=== PATIENT | male | born 1975 | race Caucasian/White ===

== ENCOUNTER 2018-11-20 10:45 | Inpatient (IN) | payer OTHER ==
[2018-11-18 17:31] VITALS: BMI 27.9
[2018-11-20] VITALS (23 sets, daily range): BP systolic 111–150; BP diastolic 54–78; PULSE 54–102; RESP 12–20; Ht 185.4 cm; Wt 94.5 kg
[~2018-11-20] VITALS: Ht 185.4 cm; Wt 94.5 kg
[2018-11-20] MEDS ORDERED: VENL75TA PO (12:05)
[2018-11-20] MEDS ORDERED: BUPR300T4 PO (12:06)
[2018-11-20] MEDS ORDERED: TOPI100T11 PO (12:06)
[2018-11-20] MEDS ORDERED: AMLO5TAB4 PO (12:07)
[2018-11-20] MEDS ORDERED: ATEN-51 PO (12:07)
[2018-11-20] MEDS ORDERED: MELO15TA30 PO (12:08)
[2018-11-20] MEDS ORDERED: GEMF600T8 PO (12:08)
[2018-11-20] MEDS ORDERED: FLUT16SP17 NASAL (12:08)
[2018-11-20] MEDS ORDERED: GELATIN SIZE 100 SPONGE ONE (12:38)
[2018-11-20] MEDS ORDERED: POLYMYXIN/BACITRACIN 1L IRRIG ONE (12:38)
[2018-11-20] MEDS ORDERED: THROMBIN 5000 UNIT VIAL ONE (12:38)
[2018-11-20] MEDS ORDERED: LIDOCAINE 1%/EPI (1:100,000) (MDV) 20 ML ONE (12:38)
--- NOTE | 2018-11-20 12:41 | HPN ---
Date/Time of Note Date/Time of Note DATE: 11/20/18 TIME: 12:41 Interval H&P Admission Note Pt. seen H&P reviewed: No system changes NADIR DEXTER MD Nov 20, 2018 12:41
--- NOTE | 2018-11-20 12:53 | PREAC ---
Date/Time of Note Date/Time of Note DATE: 11/20/18 TIME: 11:07 Anesthesia Eval and Record Evaluation Time Pre-Procedure Interview DATE: 11/20/18 TIME: 11:07 Age 43 Sex male NPO: 8 hrs Preoperative diagnosis cervical stenosis, cervicalgia, post laminectomy syndrome Planned procedure C3-C4, C4-C5 anterior cervical discectomy and fusion and C4 corpectomy Past Medical History Past Medical History: Includes Cardio: HTN, Dyslipidemia Psych: Anxiety Surgery & Anesthesia Issues No known issue Meds Anticoagulation: No Beta Oskar within 24 hr: Yes Reason Beta Oskar not given: Bradycarida, Hypotension Current Medications Lactated Ringer's 1,000 ml @ 25 mls/hr Q24H IV ; Start 11/20/18 at 07:00 Sodium Chloride 1,000 ml @ 25 mls/hr Q24H IV ; Start 11/20/18 at 07:00 Meds reviewed: Yes Allergies Coded Allergies: Penicillins (Verified Allergy, Unknown, TONGUE SWELLS, 11/18/18) adhesive tape (Verified Allergy, Unknown, RED,ITCHING, INFECTION, 11/18/18) Allergies Reviewed: Yes Labs/Studies Labs Reviewed: Reviewed by anesthesiologist test: N/A Pre-procedure Exam Airway: Adequate mouth opening, Adequate thyromental dist Mallampati: Mallampati II Teeth: Normal Lung: Normal Heart: Normal ASA Physical Status ASA physical status: 2 Emergency: None Planned Anesthetic General/MAC: ETT Planned Pain Management Parenteral pain med Pre-operative Attestations Prior to commencing anesthesia and surgery, the patient was re-evaluated, there was verification of: *The patient's identity *The results of appropriate recent lab work and preoperative vital signs *The above evaluation not changing prior to induction *Anesthetic plan, risk benefits, alternative and complications discussed with patient/family; questions answered; patient/family understands, accepts and wishes to proceed. SIMEON GREEN MD Nov 20, 2018 12:53
[2018-11-20] MEDS ORDERED: MIDAZOLAM 1 MG/ML 2 ML INJ ONE ×2 (13:09→14:03)
[2018-11-20] MEDS ORDERED: PHENYLephrine (100 MCG/ML) 10ML SYG ONE (13:24)
[2018-11-20] MEDS ORDERED: VANCOMYCIN 1 GM INJ ONE (13:43)
[2018-11-20] MEDS ORDERED: SUCCINYLCHOLINE CHLORIDE 100 MG/5 ML SYG IV ONE (14:23)
[2018-11-20] MEDS ORDERED: LIDOCAINE 2% (SDV) 5 ML INJ ONE (14:23)
[2018-11-20] MEDS ORDERED: PROPOFOL 40 ML ONE (14:23)
[2018-11-20] MEDS ORDERED: ROCURONIUM 50 MG INJ ONE ×2 (14:23→18:21)
[2018-11-20] MEDS ORDERED: EPHEDrine 25 MG/5 ML SYG ONE ×2 (14:34→19:52)
[2018-11-20] MEDS ORDERED: DEXAMETHASONE 4 MG/ML 5 ML INJ ONE (14:40)
[2018-11-20] MEDS ORDERED: ONDANSETRON 4 MG INJ ONE (14:40)
[2018-11-20] MEDS ORDERED: FAMOTIDINE 20 MG INJ ONE (14:40)
--- NOTE | 2018-11-20 15:54 | PREOPHP ---
DATE OF ADMISSION: 11/20/2018 DATE OF ENCOUNTER: 11/20/2018 HISTORY OF PRESENT ILLNESS: The patient is a 43-year-old male with a history of chronic shoulder iss ues and left upper shoulder pain. The patient has a history of a C5-C6 and C6-C7 anterior cervical d iskectomy and fusion by Dr. Delvin Santiago in 2008, followed by a C5-C6 posterior fusion due to a pseudoa rthrosis at C5-C6. The patient states that he initially had some improvement of his symptoms but sti ll had some persistent burning in his left forearm. However, over time, the patient has developed a significantly worsening neck pain that ranges from 7 to 10/10 in severity. He has been followed by p ain management and patient underwent injections as well as multiple other modalities of nonoperative therapy and did not have significant improvement from this. The patient also reports chronic headach es. Radiographic imaging revealed significant degenerative disk disease at C2-3 and foraminal narrow ing as well as degenerative disk disease at C4-5 with stenosis and spondylolisthesis on dynamic imagi ng. The patient denies any bowel or bladder issues or any signs or symptoms of myelopathy. PAST MEDICAL HISTORY: Significant for gastritis, esophageal herniation, left inguinal hernia, umbili naun hernia, cluster headache/migraine, and colon surgery for a tumor. ALLERGIES: PENICILLIN. PAST SURGICAL HISTORY: Significant for a lumbar fusion as well as an anterior and posterior cervical fusion in 2008 and 2011 as well as a sinus surgery and 3 hernia repairs. FAMILY HISTORY: The patient denies any history of any inherited medical issues or bleeding disorders . The patient's father of lung cancer, Mother is alive and has 2 siblings. SOCIAL HISTORY: The patient has an associate degree. 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 He does not smoke or use illicit drugs and occasionally drinks alcohol. MEDICATIONS: 1. Fexofenadine 180 mg. 2. Venlafaxine 75 mg. 3. ____ 50 mg. REVIEW OF SYSTEMS: A 12-point review of systems was performed. Pertinent positives and negatives li sted in history of present illness and below. CONSTITUTIONAL: Denies any fever, chills, or weight loss. HEMATOLOGIC: Denies any history of easy bruising or bleeding. PSYCHIATRIC: Denies any history of depression or anxiety. PHYSICAL EXAMINATION: VITAL SIGNS: The patient's temperature is 97.8, pulse 54, respirations 16, blood pressure 114/78, sa turating 100% on room air. GENERAL: The patient is a well-developed, well-nourished, middle-aged male in no acute distress. HEAD AND NECK: He is normocephalic. He has a positive Spurling sign and Lhermitte sign. He has dim inished range of motion but does not report discomfort with these motions. CARDIAC: Regular rate and rhythm. LUNGS: Clear to auscultation. ABDOMEN: Nontender, nondistended, soft. EXTREMITIES: No clubbing, cyanosis, or edema. NEUROLOGIC: Patient is awake, alert, and oriented x3. Fluent speech, follows commands well and appr opriately. Cranial nerves were intact. MUSCULOSKELETAL: His motor exam is 5/5 bilateral upper and lower extremities. He has 2+ deep tendon reflexes and grossly intact in sensation to light touch. He has no clonus, Babinski, or Lorri si gns. He has a negative Tinel sign. 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 I discussed patient's signs, symptoms, physical examination, and radiographic findings with him in detail. I discussed the risks, benefits, and alternatives of surgical intervention. I explained that he may or may not have improvement in h is neck pain and headaches from the surgery but does have evidence of instability. The surgical plan will be to remove the patient's plate from C5-5, C6-7 and performed a C4 corpectomy and anterior fus ion with plate. The patient understands that the plate may not be able to be removed and single-leve l anterior cervical diskectomy and fusions (ACDFs) may be performed and that the patient may have to return to surgery for a posterior operation. The patient has been seen by an carburetor repairer and castillo d no evidence of vocal cord dysfunction, previously had surgery on the right. The patient denies any hoarseness. The patient expressed understanding during this plan of care and is to be taken to the operating room (OR) today. Dictated By: NADIR DEXTER MD, LG/AMMON Conf#: [id number] DID#: [id number]
[2018-11-20] MEDS ORDERED: HYDROmorphONE 2 MG/ML SYG ONE (18:22)
[2018-11-20] MEDS ORDERED: ONDANSETRON 4 MG INJ IV PRN (19:30)
[2018-11-20] MEDS ORDERED: MEPERIDINE 25 MG INJ IV PRN (19:30)
[2018-11-20] MEDS ORDERED: FENTAnyl 50 MCG/ML VIAL IV PRN ×3 (19:30)
[2018-11-20] MEDS ORDERED: HYDROmorphONE 1 MG/5 ML IV SYRINGE IV PRN ×3 (19:30)
[2018-11-20] MEDS ORDERED: DIPHENHYDRAMINE 50 MG INJ IV PRN (19:30)
[2018-11-20] MEDS ORDERED: PROCHLORPERAZINE 10 MG INJ IV PRN (19:30)
[2018-11-20] MEDS ORDERED: DIPHENHYDRAMINE 50 MG CAP PO PRN (20:00)
[2018-11-20] MEDS ORDERED: NALOXONE (0.4 MG/ML) INJ IV PRN (20:00)
[2018-11-20] MEDS ORDERED: morphine 1 MG/ML 30 ML (PCA) IV SCH (20:00)
[2018-11-20] MEDS ORDERED: HYDROCODONE/APAP (5/325) TAB PO PRN (20:00)
[2018-11-20] MEDS ORDERED: NACL 0.9% 3 ML SYG IV SCH (20:00)
[2018-11-20] MEDS ORDERED: CEPASTAT LOZENGE MT PRN (20:00)
--- NOTE | 2018-11-20 20:12 | OPR ---
Date/Time of Note Date/Time of Note DATE: 11/20/18 TIME: 20:04 Operative Report Preoperative Diagnosis 1. cervical stenosis 2. cervical spondylosis 3. C4-5 instability 4. C3-4 degenerative disc disease. 5. cervical radiculopathy Postoperative Diagnosis 1. cervical stenosis 2. cervical spondylosis 3. C4-5 instability 4. C3-4 degenerative disc disease. 5. cervical radiculopathy Operation/Procedure Performed 1. C4 corpectomy 2. C3-4, C4-5 discectomy. 3. C3-5 arthrodesis. 4. removal of anterior cervical plate. 5. placement of anterior cervical plate C3-5. 6. placement of mechanical intervertebral device C3-5. 7. use of microscope for intraoperative microdissection. Surgeon see signature line Customer Greeter EDDIE Han Anesthesia Type: general Anesthesiologist: SIMEON GREEN MD Estimated Blood Loss: 50 - 100 ml's Transfusion none Specimen explanted cervical plate Grafts/Implants cervical plate, PEEK cage Tubes/Drains none Complications none Pt Condition Post Procedure: stable Disposition: PACU Procedure Description see dictation NADIR DEXTER MD Nov 20, 2018 20:12
--- NOTE | 2018-11-20 20:14 | PAC ---
Date/Time of Note Date/Time of Note DATE: 11/20/18 TIME: 20:13 Post-Anesthesia Notes Post-Anesthesia Note Last documented vital signs Vital Signs Date Temp Pulse Resp B/P (MAP) Pulse Ox O2 O2 Flow FiO2 Time Delivery Rate 11/20/18 99.6 20:06 11/20/18 54 16 114/78 100 Room Air 11:51 (90) Activity: WNL Respiratory function: WNL Cardiovascular function: WNL Mental status: Baseline Pain reasonably controlled: Yes Hydration appropriate: Yes Nausea/Vomiting absent: Yes Comments BP: 130/75 HR: 88 RR: 15 T: 99.6 SaO2: 99% SIMEON GREEN MD Nov 20, 2018 20:14
--- NOTE | 2018-11-20 20:58 | OPR ---
DATE OF OPERATION: 11/20/2018 PREOPERATIVE DIAGNOSES: 1. Cervical stenosis, C3 to C4, C4 to C5. 2. Cervical spondylosis, C3 to C4, C4 to C5. 3. C4 to C5 instability. 4. C3 to C4 degenerative disk disease. 5. Cervical radiculopathy. POSTOPERATIVE DIAGNOSES: 1. Cervical stenosis, C3 to C4, C4 to C5. 2. Cervical spondylosis, C3 to C4, C4 to C5. 3. C4 to C5 instability. 4. C3 to C4 degenerative disk disease. 5. Cervical radiculopathy. PROCEDURES: 1. C4 corpectomy. 2. C3 to C4, C4 to C5 diskectomy and bilateral foraminotomy. 3. C3 to C5 arthrodesis. 4. Removal of anterior cervical plate, C5 to C7. 5. Placement of anterior cervical plate, C3 to C5. 6. Placement of mechanical intervertebral bodies, C3 to C5. 7. Use of microscope for intraoperative microdissection. SURGEON: Nadir Dexter MD ANESTHESIOLOGIST: Bianka Maciel MD ANESTHESIA: General endotracheal. ESTIMATED BLOOD LOSS: 50 mL. SPECIMENS: Explanted graft/implant cervical plate and PEEK cage. DRAINS PLACED: None. COMPLICATIONS: None. DISPOSITION: PACU in stable condition. INDICATIONS: The patient is a 43-year-old male with a history of a prior C5 to C6 and C6 to C7 anterior cervical diskectomy and fusion in 2008 with a subsequent posterior C5 to C6 fusion for pseudoarthrosis in 2011 by another surgeon. The patient had some residual left arm radicular/dysesthetic symptoms, but his symptoms had improved overall. However over the years, the patient had progressive nerve pain and shoulder pain and pain radiating to the left shoulder as well as headaches. Imaging showed dynamic instability at C4 to C5 as well as degenerative disk disease at C2 to C3. The risks, benefits and alternatives of surgical intervention were discussed with the patient, who elected for surgery. DESCRIPTION OF PROCEDURE: The patient was brought to the OR. He was sedated, intubated and anesthesia was successfully induced. The patient was placed in the supine position in the operative table. An intrascapular shoulder roll was placed. The patient's neck was placed in gentle extension. All pressure points were checked for appropriate padding. Sequential compression devices were placed on lower extremities. Whatley catheter was placed. Perioperative Ancef antibiotics were given. Fluoroscopy was used to localize the initial incision. The patient was sterilely prepped and draped. After surgical time-out, the procedure commenced. A right-sided incision diagonally along the medial to the border of the sternocleidomastoid was made with a 10-blade knife. Blunt dissection with spreading of Metzenbaum scissors as well as digital manipulation was used to take an avascular plane through the fascia between the strap muscles and sternocleidomastoid. This was taken down the prevertebral fascia. The plate was then visualized. Bovie electrocautery was used to take capsule and soft tissue off of the plate. Then, a universal screw was used to remove this plate and screws. Bone wax was placed in the arnold holes. Attention was then turned to identifying the C3 to C4 and C4 to C5 levels. This was done with fluoroscopic guidance. Dissection of the soft tissue over the inferior aspect of C3, entirety of C4, anterior C4 and superior aspect of the C5 vertebral body was performed. The longus colli muscles were dissected and mobilized laterally and self-retaining retractors were placed. [place] pins were placed into the vertebral body of C5 and C3 and distraction was performed over the disk space. The microscope was brought in for the diskectomy and corpectomy. An 11-blade knife was used to incise the disk space at C5 and then the diskectomy was performed with Kerrison rongeurs and pituitary rongeurs. A diskectomy was also performed at C3. Next, the high speed drill was used to perform a corpectomy and removal of central bone from endplate to endplate. This bone was harvested to use for allograft for the interbody graft. Removal of bone was carried back to the posterior longitudinal ligament, which was then and removed over the dura. Kerrison rongeurs were then used to remove residual disk and ligament and foraminotomy was performed at C3 to C4 as well as C4 to C5. Hemostasis was achieved with Gelfoam and bipolar electrocautery. The wound was copiously irrigated. A 26 mm PEEK interbody cage was packed with autograft and this was tamponaded into the defect between C3 and C5. The cartilaginous endplates had been removed with a high speed drill and curettes prior to placement. The graft fit snugly. Distraction was removed to allow settling of the vertebral bodies on to the graft. This showed good placement fluoroscopically. Next 34 mm anterior cervical plate was placed over the vertebral body and 2 screws were placed in the C3 to C4 and 2 screws in the C4 vertebral body until all screws had excellent purchase. The locking mechanism was engaged for the screws. The wound was copiously irrigated with bacitracin irrigation. Final x-rays were performed showing good placement of the graft and screws. Hemostasis was achieved with bipolar electrocautery. Inspection of the esophagus and carotid showed no evidence of injury. The incision was then closed with 2-0 Vicryl suture in the platysma, 3-0 interrupted Vicryl sutures in the subcutaneous tissue and a running 4-0 Monocryl suture. Dermabond was placed on incision, allowed to dry and a sterile dressing was applied. The patient was awakened, extubated and taken off the operative table. The patient has been monitored with electrophysiologic monitoring throughout the case running with EMGs and SSEPs as well as motor-evoked potentials. These remained stable throughout the case. Sponge, needle and cottonoid count were reported correct at the end of the case. Dictated By: NADIR DEXTER MD, LG/AMMON Conf#: [id number] DID#: [id number] HENNA
[2018-11-20] MEDS: morphine 1 MG/ML 30 ML (PCA) IV SCH (21:18)
[2018-11-20] MEDS: ONDANSETRON 4 MG INJ IV PRN (22:26)
[2018-11-20] MEDS: VANCOMYCIN 1 GM (PMX) 250 ML IVPB SCH (22:26)
[2018-11-20] MEDS: LACTATED RINGER'S 1,000 ML IV SCH (22:51)
[2018-11-20] MEDS: SOD CHLORIDE 0.9% 1,000 ML IV SCH (22:51)
[2018-11-21] VITALS (28 sets, daily range): BP systolic 122–173; BP diastolic 60–99; PULSE 80–98; RESP 6–20
[2018-11-21] MEDS: LACTATED RINGER'S 1,000 ML IV SCH (06:19)
[2018-11-21] MEDS: SOD CHLORIDE 0.9% 1,000 ML IV SCH (06:22)
--- NOTE | 2018-11-21 06:54 | PN ---
Date/Time of Note Date/Time of Note DATE: 11/21/18 TIME: 06:49 Assessment/Plan Lines/Catheters IV Catheter Type (from Nrs): Peripheral IV Assessment/Plan Chief Complaint/Hosp Course PO # 1 s/p C4 corpectomy, C3-5 anterior fusion. Neurologically stable. Will give some Decadron given long incision and retraction to help swallowing. Ambulate. D/C Whatley. PT. SCD for DVT prophylaxis. To receive [place] collar today. Pain control, cont. FACILITY MANAGER though IV Tylenol to assist. Subjective 24 Hr Interval Summary Patient stable. Pain controlled. Denies significant neck pain, headache. Denies UE radicular pain. No real hoarseness though some difficulty with secretions and liquids. He denies fever or chills or weakness. Exam/Review of Systems Vital Signs Vitals Vital Signs Date Temp Pulse Resp B/P (MAP) Pulse Ox O2 O2 Flow FiO2 Time Delivery Rate 11/21/18 01:00 11/21/18 98.0 98 128/74 99 Nasal 2.0 00:00 (92) Cannula Intake and Output 11/20/18 11/20/18 11/21/18 1414:59 22:59 06:59 IntakeIntake Total 3000 ml 350 ml OutputOutput Total 450 ml BalanceBalance 3000 ml -450 ml 350 ml Exam Constitutional: alert, oriented, well developed Head: normocephalic Neck: other (neck in neutral position, in hard cervical collar. Incision C/D/I, not tense, no swelling) Neurological: CERTIFIED INDUSTRIAL HYGIENIST II-XII intact, nl mental status, nl speech, nl strength Results Result Diagram: 11/21/18 0505 11/21/18 0505 NADIR DEXTER MD Nov 21, 2018 06:54
[2018-11-21] MEDS: ONDANSETRON 4 MG INJ IV PRN ×2 (06:58→16:10)
[2018-11-21] MEDS ORDERED: EPHEDrine 25 MG/5 ML SYG ONE (07:00)
[2018-11-21] MEDS: DEXTROSE 5%-0.45% NACL 1,000 ML IV SCH ×2 (08:49→22:46)
[2018-11-21] MEDS: ACETAMINOPHEN 1000MG/100ML IV 100 ML IVPB SCH ×3 (08:49→21:45)
[2018-11-21] MEDS: AMLODIPINE 5 MG TAB PO SCH (09:00)
[2018-11-21] MEDS: GEMFIBROZIL 600 MG TAB PO SCH (09:00)
[2018-11-21] MEDS: ATENOLOL 25 MG TAB PO SCH (09:00)
[2018-11-21] MEDS: FLUTICASONE 0.05% 16 GM NAS SPRAY NASAL SCH (09:00)
[2018-11-21] MEDS: VENLAFAXINE 75 MG TABLET PO SCH ×2 (09:00→21:45)
[2018-11-21] MEDS: BUPROPION (XL) 150 MG TAB PO SCH (09:00)
[2018-11-21] MEDS: DOCUSATE SODIUM 100 MG CAP PO SCH ×2 (09:00→21:45)
[2018-11-21] MEDS: DEXAMETHASONE 4 MG/ML 1 ML INJ IV SCH ×3 (09:03→22:45)
[2018-11-21] MEDS ORDERED: METOCLOPRAMIDE 10 MG INJ IV PRN ×2 (09:45→18:00)
[2018-11-21] MEDS: VANCOMYCIN 1 GM (PMX) 250 ML IVPB SCH (11:01)
[2018-11-21] MEDS ORDERED: METOCLOPRAMIDE 10 MG INJ IV SCH (12:00)
--- NOTE | 2018-11-21 12:23 | HP ---
TONY TROY 11/21/18 1223: Date/Time of Note Date/Time of Note DATE: 11/21/18 TIME: 12:16 Assessment/Plan VTE Prophylaxis Risk score (from [facility] [place])>0 risk: 8 SCD applied (from [facility] [place]): Yes SCD contraindicated: other Pharmacological prophylaxis: NA/contraindicated Pharm contraindication: surgical contra Lines/Catheters IV Catheter Type (from [facility] [place]): Peripheral IV Assessment/Plan Hospital Course 1. 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 S/p C4 corpectomy, C3-4, C4-5 discectomy, C3-5 arthrodesis, removal of anterior cervical plate, placement of anterior cervical plate C3-5, placement of mechanical intervertebral device C3-[address] Montgomery on 11/20/18. POD # 1. WBC elevated more likely after surgical intervention 2. Chronic cluster headaches, possible to chronic neck pain. Hx of chronic shoulder pain 3. Normocytic normochromic anemia 4. Hx of anterior and posterior cervical fusion in 2008 and 2011, 5.Hypertension 6. Hx of colon tumor removal 7. Hx of herniorrhaphy 3 times. 8. Overweight 9. Hx of hyperlipidemia 10. hx of depression 11. Hx of sinus surgery, Assessment/Plan -dvt proph. ambulation -CRYSTAL CUTTER morphine drip -GI proph. start Protonix -BP control -IV a/b Result Diagram: 11/21/18 0505 11/21/18 0505 Results 24hrs Laboratory Tests Test 11/21/18 05:05 11/21/18 07:44 White Blood Count 16.7 H Red Blood Count 4.09 L Hemoglobin 12.2 L Hematocrit 36.9 L Mean Corpuscular Volume 90.2 Mean Corpuscular Hemoglobin 29.8 Mean Corpuscular Hemoglobin Concent 33.1 Red Cell Distribution Width 12.6 Platelet Count 256 Mean Platelet Volume 10.2 Immature Granulocytes % 0.400 Neutrophils % 88.1 H Lymphocytes % 5.1 L Monocytes % 6.2 Eosinophils % 0.0 Basophils % 0.2 Nucleated Red Blood Cells % 0.0 Immature Granulocytes # 0.070 H Neutrophils # 14.8 H Lymphocytes # 0.9 Monocytes # 1.0 H Eosinophils # 0.0 Basophils # 0.0 Nucleated Red Blood Cells # 0.0 Sodium Level 141 Potassium Level 4.7 Chloride Level 108 Carbon Dioxide Level 25 Anion Gap 8 Blood Urea Nitrogen 15 Creatinine 1.12 Est Glomerular Filtrat Rate mL/min > 60 Glucose Level 178 Calcium Level 9.3 Lab Scanned Report REFERENCE LAB HPI/ROS Admit Date/Time Admit Date/Time Nov 20, 2018 at 10:45 Hx of Present Illness The patient is a 43-year-old male with a history of chronic neck pain, chronic headaches, depression, chronic shoulder issues and left upper shoulder pain. The patient has injured in 2005 and had a C5-C6 and C6-C7 anterior cervical diskectomy and fusion 2008, followed by a C5-C6 posterior fusion due to a pseud oarthrosis at C5-C6. Over time, the patient has developed a significantly worsening neck pain that ranges from 7 to 10/10 in severity. He had difficulties working. He has been followed by pain management and patient underwent injections as well as multiple other modalities of nonoperative therapy and did not have significant improvement from this. Pt is seen after surgery, on POSt op day 1 on Morphin drip for pain. Pt is NPO. PAST MEDICAL HISTORY: Significant for gastritis, esophageal herniation, left inguinal hernia, umbilical hernia, cluster headache/migraine, and colon surgery for a tumor. ROS Constitutional: febrile; No no complaints, No improved, No chills, No diaphoresis, No disoriented, No fatigue, No nausea, No poor po, No weight change, No other ENT: pain Musculoskeletal: no complaints, back pain, bone/joint pain, neck pain, restricted range of motion, swelling, other PMH/Family/Social Past Medical History Medical History: no pertinent history Medications Current Medications Lactated Ringer's 1,000 ml @ 25 mls/hr Q24H IV ; Start 11/20/18 at 07:00 Sodium Chloride 1,000 ml @ 25 mls/hr Q24H IV Last administered on 11/20/18at 22:51; Admin Dose 25 MLS/HR; Start 11/20/18 at 07:00 Acetaminophen/ Hydrocodone Bitart ([place]win (5/325)) 1 tab Q4H PRN PO .PAIN 1-5; Start 11/20/18 at 20:00 Acetaminophen/ Hydrocodone Bitart (Baldwin (5/325)) 2 tab Q4H PRN PO .PAIN 6-10; Start 11/20/18 at 20:00 Ondansetron HCl (Zofran Inj) 4 mg Q6H PRN IV NAUSEA/VOMITING Last administered on 11/21/18at 06:58; Admin Dose 4 MG; Start 11/20/18 at 20:00 Docusate Sodium (Colace) 100 mg BID PO ; Start 11/21/18 at 09:00 Acetaminophen (Tylenol Tab) 650 mg Q4H PRN PO TEMP GREATER THAN 101F OR REYES; Start 11/20/18 at 20:00 Diazepam (Valium) 5 mg Q4H PRN PO .MUSCLE SPASM; Start 11/20/18 at 20:00 Phenol (Cepastat Lozenge) 1 lozenge PRN PRN MT .SORE THROAT; Start 11/20/18 at 20:00 Diphenhydramine HCl (Benadryl) 50 mg Q6H PRN PO .PRURITUS; Start 11/20/18 at 20:00 IV Flush (NS 3 ml) 3 ml PER PROTOCOL IV ; Start 11/20/18 at 20:00 Naloxone HCl (Narcan) 0.2 mg Q2M PRN IV RR 8 BREATHS/MIN OR LESS; Start 11/20/18 at 20:00 Morphine Sulfate (morphine) Q4PCA IV Last administered on 11/20/18at 21:18; Admin Dose 30 MG; Start 11/20/18 at 21:30 Amlodipine Besylate (Norvasc) 5 mg DAILY PO ; Start 11/21/18 at 09:00 Atenolol (Tenormin) 25 mg DAILY PO ; Start 11/21/18 at 09:00 Bupropion HCl (Wellbutrin Xl) 300 mg DAILY PO ; Start 11/21/18 at 09:00 Fluticasone Propionate (Flonase 0.05% Nasal) 1 spray DAILY NASAL ; Start 11/21/18 at 09:00 Gemfibrozil (Lopid) 600 mg DAILY PO ; Start 11/21/18 at 09:00 Topiramate (Topamax) 100 mg QHS PO ; Start 11/21/18 at 21:00 Venlafaxine HCl (Effexor) 75 mg BID PO ; Start 11/21/18 at 09:00 Dexamethasone (Decadron) 4 mg Q8 IV Last administered on 11/21/18at 09:03; Admin Dose 4 MG; Start 11/21/18 at 08:00 Acetaminophen 100 ml @ 400 mls/hr Q6H IVPB Last administered on 11/21/18at 08:49; Admin Dose 400 MLS/HR; Start 11/21/18 at 09:00; Stop 11/22/18 at 03:14 Dextrose/Sodium Chloride 1,000 ml @ 40 mls/hr Q24H IV Last administered on 11/21/18at 08:49; Admin Dose 40 MLS/HR; Start 11/21/18 at 08:00 Metoclopramide HCl (Reglan) 10 mg Q6H PRN IV NAUSEA Last administered on 11/21/18at 09:43; Admin Dose 10 MG; Start 11/21/18 at 09:45 Coded Allergies: Penicillins (Verified Allergy, Unknown, TONGUE SWELLS, 11/20/18) adhesive tape (Verified Allergy, Unknown, RED,ITCHING, INFECTION, 11/20/18) Past Surgical History Past Surgical Hx: other ( anterior and posterior cervical fusion in 2008 and 2011, sinus surgery, colon tumor removal and 3 hernia repairs.) Social History Alcohol Use: none Smoking Status: Never smoker Drug Use: none Exam/Review of Systems Vital Signs Vitals Vital Signs Date Temp Pulse Resp B/P (MAP) Pulse Ox O2 O2 Flow FiO2 Time Delivery Rate 11/21/18 Nasal 2.0 08:00 Cannula 11/21/18 16 08:00 11/21/18 97.9 86 138/85 100 07:49 (102) Intake and Output 11/20/18 11/20/18 11/21/18 1515:00 23:00 07:00 IntakeIntake Total 3000 ml 350 ml OutputOutput Total 450 ml BalanceBalance 3000 ml -450 ml 350 ml Exam Exam in [place] collar Constitutional: alert, oriented Psych: no complaints Head: normocephalic Eyes: nl conjunctiva Neck: other (surg. scars) Respiratory: clear to auscultation Cardiovascular: regular rate and rhythm Gastrointestinal: soft Skin: other (mumerous tattoo) DALLAS KISER MD 11/21/18 0958: Assessment/Plan Assessment/Plan Assessment/Plan DIFFICULTY SWALLOWING SPEECH AND SWALLOW DR GRAVELY CALLED Result Diagram: 11/21/18 0505 11/21/18 0505 PMH/Family/Social Past Medical History Coded Allergies: Penicillins (Verified Allergy, Unknown, TONGUE SWELLS, 11/20/18) adhesive tape (Verified Allergy, Unknown, RED,ITCHING, INFECTION, 11/20/18) TONY TROY Nov 21, 2018 12:23 DALLAS KISER MD Nov 21, 2018 15:47
--- NOTE | 2018-11-21 16:28 | PN ---
Date/Time of Note Date/Time of Note DATE: 11/21/18 TIME: 15:50 Assessment/Plan Lines/Catheters IV Catheter Type (from Nrs): Peripheral IV Subjective 24 Hr Interval Summary Patient having swallowing issues and difficulty even keeping down water. He denies SOB or difficulty breathing.I reviewed his plain film cervical x-ray. there is significant pre-vertebral swelling. Most likely blood. Unclear of significance of some subcutaneous emphysema. This could suggest a hyopharyngeal injury but unclear. I will get a CT scan but given his swelling and swallowing issues, it may be most prudent to explore the wound and evacuate any blood that is present as well as leave a drain. . I explained that his may simply be swelling rather than significant hematoma. The patient stated that he understood and agreed with decompression if I felt this would be best. I discussed the risk, benefits and alternatives of surgery versus observation with him. I he agreed with surgery although I will make the final decision after the CT scan of the neck has been completed. Exam/Review of Systems Vital Signs Vitals Vital Signs Date Temp Pulse Resp B/P (MAP) Pulse Ox O2 O2 Flow FiO2 Time Delivery Rate 11/21/18 98.6 97 18 133/84 98 14:46 (100) 11/21/18 Nasal 2.0 08:00 Cannula Intake and Output 11/20/18 11/20/18 11/21/18 1515:00 23:00 07:00 IntakeIntake Total 3000 ml 350 ml OutputOutput Total 450 ml BalanceBalance 3000 ml -450 ml 350 ml Results Result Diagram: 11/21/18 0505 11/21/18 0505 NADIR DEXTER MD Nov 21, 2018 16:28
[2018-11-21] MEDS ORDERED: POLYMYXIN/BACITRACIN 1L IRRIG ONE (17:30)
--- NOTE | 2018-11-21 17:46 | PREAC ---
Date/Time of Note Date/Time of Note DATE: 11/21/18 TIME: 17:43 Anesthesia Eval and Record Evaluation Time Pre-Procedure Interview DATE: 11/21/18 TIME: 17:43 Age 43 Sex male NPO: 8 hrs Preoperative diagnosis s/p Cervical Laminectomy and fusion and Hematoma Planned procedure Evacuation of Cervical Hematoma, I & D of cervical Hematoma Past Medical History Past Medical History: Includes Cardio: HTN, Dyslipidemia Neuro: Other (Stenosis and Radiculopathy) Heme: Anemia Surgery & Anesthesia Issues No known issue Meds Anticoagulation: No Beta Oskar within 24 hr: Yes Reported Medications Fluticasone Propionate* (Fluticasone Propionate* Nasal) 50 Mcg/Convent - 16 Gm Convent.susp, 1 SPRAY NASAL DAILY, #1 BOTTLE TO EACH NOSTRIL 11/20/18 Gemfibrozil* (Gemfibrozil*) 600 Mg Tablet, 600 MG PO DAILY, TAB 11/20/18 Meloxicam* (Mobic*) 15 Mg Tablet, 15 MG PO DAILY, #30 TAB 11/20/18 Amlodipine Besylate* (Norvasc*) 5 Mg Tablet, 5 MG PO DAILY, TAB 11/20/18 Atenolol* (Atenolol*) 25 Mg Tablet, 25 MG PO DAILY, #30 TAB 11/20/18 Topiramate* (Topiramate*) 100 Mg Tablet, 100 MG PO QHS, TAB 11/20/18 Bupropion Hcl* (Bupropion XL*) 300 Mg Tab.sr.24h, 300 MG PO DAILY, TAB.SA 11/20/18 Venlafaxine Hcl* (Venlafaxine Hcl*) 75 Mg Tablet, 75 MG PO BID, TAB 11/20/18 Current Medications Acetaminophen/ Hydrocodone Bitart ([place] (5/325)) 1 tab Q4H PRN PO .PAIN 1-5; Start 11/20/18 at 20:00 Acetaminophen/ Hydrocodone Bitart ([place] (5/325)) 2 tab Q4H PRN PO .PAIN 6-10; Start 11/20/18 at 20:00 Ondansetron HCl (Zofran Inj) 4 mg Q6H PRN IV NAUSEA/VOMITING Last administered on 11/21/18at 16:10; Admin Dose 4 MG; Start 11/20/18 at 20:00 Docusate Sodium (Colace) 100 mg BID PO ; Start 11/21/18 at 09:00 Acetaminophen (Tylenol Tab) 650 mg Q4H PRN PO TEMP GREATER THAN 101F OR REYES; Start 11/20/18 at 20:00 Diazepam (Valium) 5 mg Q4H PRN PO .MUSCLE SPASM; Start 11/20/18 at 20:00 Phenol (Cepastat Lozenge) 1 lozenge PRN PRN MT .SORE THROAT; Start 11/20/18 at 20:00 Diphenhydramine HCl (Benadryl) 50 mg Q6H PRN PO .PRURITUS; Start 11/20/18 at 20:00 IV Flush (NS 3 ml) 3 ml PER PROTOCOL IV ; Start 11/20/18 at 20:00 Naloxone HCl (Narcan) 0.2 mg Q2M PRN IV RR 8 BREATHS/MIN OR LESS; Start 11/20/18 at 20:00 Morphine Sulfate (morphine) Q4PCA IV Last administered on 11/20/18at 21:18; Admin Dose 30 MG; Start 11/20/18 at 21:30 Amlodipine Besylate (Norvasc) 5 mg DAILY PO ; Start 11/21/18 at 09:00 Atenolol (Tenormin) 25 mg DAILY PO ; Start 11/21/18 at 09:00 Bupropion HCl (Wellbutrin Xl) 300 mg DAILY PO ; Start 11/21/18 at 09:00 Fluticasone Propionate (Flonase 0.05% Nasal) 1 spray DAILY NASAL ; Start 11/21/18 at 09:00 Gemfibrozil (Lopid) 600 mg DAILY PO ; Start 11/21/18 at 09:00 Topiramate (Topamax) 100 mg QHS PO ; Start 11/21/18 at 21:00 Venlafaxine HCl (Effexor) 75 mg BID PO ; Start 11/21/18 at 09:00 Dexamethasone (Decadron) 4 mg Q8 IV Last administered on 11/21/18at 15:01; Admin Dose 4 MG; Start 11/21/18 at 08:00 Acetaminophen 100 ml @ 400 mls/hr Q6H IVPB Last administered on 11/21/18at 15:01; Admin Dose 400 MLS/HR; Start 11/21/18 at 09:00; Stop 11/22/18 at 03:14 Dextrose/Sodium Chloride 1,000 ml @ 40 mls/hr Q24H IV Last administered on 11/21/18at 08:49; Admin Dose 40 MLS/HR; Start 11/21/18 at 08:00 Metoclopramide HCl (Reglan) 10 mg Q6H PRN IV NAUSEA Last administered on 11/21/18at 09:43; Admin Dose 10 MG; Start 11/21/18 at 09:45 Pantoprazole (Protonix Iv) 40 mg DAILY@06 IV ; Start 11/22/18 at 06:00 Meds reviewed: Yes Allergies Coded Allergies: Penicillins (Verified Allergy, Unknown, TONGUE SWELLS, 11/20/18) adhesive tape (Verified Allergy, Unknown, RED,ITCHING, INFECTION, 11/20/18) Allergies Reviewed: Yes Labs/Studies Labs Reviewed: Reviewed by anesthesiologist Result Diagram: 11/21/18 0505 11/21/18 0505 Laboratory Tests 11/21/18 05:05 test: N/A Studies: ECG (n/a), CXR (n/a) Pre-procedure Exam Last vitals Vital Signs Date Temp Pulse Resp B/P (MAP) Pulse Ox O2 O2 Flow FiO2 Time Delivery Rate 11/21/18 16 17:30 11/21/18 98.6 97 133/84 98 14:46 (100) 11/21/18 Nasal 2.0 08:00 Cannula Airway: Adequate mouth opening, Adequate thyromental dist Mallampati: Mallampati III Teeth: Normal Lung: Normal Heart: Normal ASA Physical Status ASA physical status: 2 Emergency: E Planned Anesthetic General/MAC: ETT Planned Pain Management Parenteral pain med Pre-operative Attestations Prior to commencing anesthesia and surgery, the patient was re-evaluated, there was verification of: *The patient's identity *The results of appropriate recent lab work and preoperative vital signs *The above evaluation not changing prior to induction *Anesthetic plan, risk benefits, alternative and complications discussed with patient/family; questions answered; patient/family understands, accepts and wishes to proceed. TOSHIA TOLBERT MD Nov 21, 2018 17:46
[2018-11-21] MEDS ORDERED: PROPOFOL 20 ML ONE (17:52)
[2018-11-21] MEDS ORDERED: ROCURONIUM 50 MG INJ ONE ×2 (17:52→17:53)
[2018-11-21] MEDS ORDERED: SUCCINYLCHOLINE CHLORIDE 100 MG/5 ML SYG IV ONE (17:52)
[2018-11-21] MEDS ORDERED: FENTAnyl 50 MCG/ML VIAL ONE (17:53)
[2018-11-21] MEDS ORDERED: MIDAZOLAM 1 MG/ML 2 ML INJ ONE (17:53)
[2018-11-21] MEDS ORDERED: METOCLOPRAMIDE 10 MG INJ ONE (17:54)
[2018-11-21] MEDS ORDERED: ONDANSETRON 4 MG INJ ONE (17:54)
[2018-11-21] MEDS ORDERED: DEXAMETHASONE 4 MG/ML 5 ML INJ ONE (17:55)
--- NOTE | 2018-11-21 17:58 | HPN ---
Date/Time of Note Date/Time of Note DATE: 11/21/18 TIME: 17:57 Interval H&P Admission Note Pt. seen H&P reviewed: Systems changes noted below see progress note from today. deferred Ct, patient doing direct to OR for drainage. NADIR DEXTER MD Nov 21, 2018 17:58
[2018-11-21] MEDS ORDERED: EPHEDrine SULFATE 50 MG/5 ML SYG IV PRN (18:00)
[2018-11-21] MEDS ORDERED: MEPERIDINE 25 MG INJ IV PRN (18:00)
[2018-11-21] MEDS ORDERED: FENTAnyl 50 MCG/ML VIAL IV PRN ×6 (18:00→20:30)
[2018-11-21] MEDS ORDERED: HYDROmorphONE 1 MG/5 ML IV SYRINGE IV PRN ×3 (18:00)
[2018-11-21] MEDS ORDERED: hydrALAzine 20 MG INJ IV PRN (18:00)
[2018-11-21] MEDS ORDERED: DIPHENHYDRAMINE 50 MG INJ IV PRN (18:00)
[2018-11-21] MEDS ORDERED: ONDANSETRON 4 MG INJ IV PRN (18:00)
[2018-11-21] MEDS ORDERED: PHENYLephrine (100 MCG/ML) 10ML SYG ONE (18:27)
[2018-11-21] MEDS ORDERED: VANCOMYCIN 1 GM (PMX) 250 ML ONE (18:35)
[2018-11-21] MEDS ORDERED: SUGAMMADEX SODIUM 200 MG/2 ML VIAL IV ONE (19:38)
[2018-11-21] MEDS: LABETALOL HCL 20MG INJ IV PRN ×4 (19:57→20:57)
--- NOTE | 2018-11-21 19:58 | PAC ---
Date/Time of Note Date/Time of Note DATE: 11/21/18 TIME: 19:58 Post-Anesthesia Notes Post-Anesthesia Note Last documented vital signs Vital Signs Date Temp Pulse Resp B/P (MAP) Pulse Ox O2 O2 Flow FiO2 Time Delivery Rate 11/21/18 16 17:30 11/21/18 98.6 97 16 133/84 98 face mask 8 L 20:00 (100) 11/21/18 Nasal 2.0 08:00 Cannula Activity: WNL Respiratory function: WNL Cardiovascular function: WNL Mental status: Baseline Pain reasonably controlled: Yes Hydration appropriate: Yes Nausea/Vomiting absent: Yes TOSHIA TOLBERT MD Nov 21, 2018 19:58
[2018-11-21] MEDS: morphine 1 MG/ML 30 ML (PCA) IV SCH ×2 (20:11→23:25)
--- NOTE | 2018-11-21 20:15 | OPR ---
Date/Time of Note Date/Time of Note DATE: 11/21/18 TIME: 19:51 Operative Report Preoperative Diagnosis 1. anterior cervical hematoma. Postoperative Diagnosis 1. anterior cervical hematoma. Operation/Procedure Performed 1. anterior cervical wound exploration and evacuation of hematoma. 2. Use of intraoperative microscope. Surgeon see signature line Harnessmaker Apprentice none Anesthesia Type: general Anesthesiologist: TOSHIA TOLBERT MD Estimated Blood Loss: 10 - 50 ml's Transfusion none Specimen none Grafts/Implants none Tubes/Drains prevertebral drain Complications none Pt Condition Post Procedure: stable Disposition: PACU Indications 43 year-old male status post C5-7 anterior cervical plate removal and C4 corpectomy, C3-5 fusion yesterday. The patient reported progressive difficult swallowing. Although he did not have any dyspnea, plain film x-rays of the neck showed significant pre-vertebral expansion, in excess of simple swelling. Given the potential progression to airway compromise, it was felt that the incision should be explored. The risk, benefits and alternative of the procedure were discussed with the patient who elected for surgery. Procedure Description The patient was brought to the OR. He was placed in a supine position of the operative table. He was intubated by the anesthesiologist. Pressure points were appropriately padded. Pre-operative antibiotics were given. The patient was sterilely prepped and draped. After a surgical time out, the procedure commenced . The incision was opened sharply with Metzenbaum scissors after the Dermabond was removed. Immediately visible beneath the subcutaneous tissue was congealed blood clot. The clot was removed with suction and a [place] #1. The clot was firm and almost solid and was difficult to suction. Irrigation was used to soften up the clot. The clot extended and field the entirety of the large operative cavity. When all the clot had been remove, the pre-vertebral space, esophagus and carotid were inspected and there did not appear to be evidence of injury. There did not appear to any arterial or edmond venous bleeder seen nor any active bleeding until the of the case when there was some minimal expected bleeding from the muscles where clot had been removed. These small areas were coagulated with bipolar electrocautery. The incision was then reinspected under magnification with the microscope. Once hemostasis was achieved, the wound was washed out with multiple rounds of irrigation. A 10 flat WILBERT drain was placed in the prevertebral space and tunneled through the skin and secured with a 2-0 nylon suture. The incision was closed with 3-0 interrupted Vicryl in the platysma, 2-0 Vicryl in the subcuticular layer and Dermabond for the skin. The drain was placed to suction. The patient was extubated, taken off the table and taken to recovery. Sponge, needle and cottonoid count were reported correct at the end of the case. GRAVELY,NADIR Parra MD Nov 21, 2018 20:07
[2018-11-21] MEDS: TOPIRAMATE 100 MG TAB PO SCH (21:45)
[2018-11-21] MEDS: LEVOFLOXACIN 750MG/D5W (PMX) 150 ML IVPB SCH (22:45)
[2018-11-22] MEDS: ACETAMINOPHEN 1000MG/100ML IV 100 ML IVPB SCH (00:36)
[2018-11-22 01:00] VITALS: BP 128/60; PULSE 80; RESP 17
[2018-11-22] MEDS: DEXAMETHASONE 4 MG/ML 1 ML INJ IV SCH ×3 (06:33→22:26)
[2018-11-22] MEDS: PANTOPRAZOLE 40 MG INJ IV SCH (06:33)
[2018-11-22 08:02] VITALS: BP 151/82; PULSE 92; RESP 18
--- NOTE | 2018-11-22 08:22 | PN ---
Date/Time of Note Date/Time of Note DATE: 11/22/18 TIME: 08:14 Assessment/Plan Lines/Catheters IV Catheter Type (from Nrs): Peripheral IV Assessment/Plan Chief Complaint/Hosp Course POD #2, 1s/p C4 corpectomy and fusion with return to OR for evacuation of prevertebral hematoma. Doing better. Expected normal bleeding from drain, only 30 ml overnight but will leave in until tomorrow. Cont. Decadron for 1 more day then ween off. Levaquin for prophylaxis- SQ emphysema was seen, d/w ENT, unlikely hypopharyngeal issue but will leave drain to assess for drainage. SCD for DVT prophylaxis. Will get swallow evaluation. Ambulate. Pt. expressed understanding and agreement with this plan of care. Subjective 24 Hr Interval Summary Patient is doing better. Reports less neck fullness and easier time speaking and handling secretions. Still reports some phlegm in throat. He denies any new numbness, tingling ,weakness. His neck pain is well controlled Exam/Review of Systems Vital Signs Vitals Vital Signs Date Temp Pulse Resp B/P (MAP) Pulse Ox O2 O2 Flow FiO2 Time Delivery Rate 11/22/18 17 05:00 11/22/18 98.2 80 128/60 97 Nasal 2.0 01:00 (82) Cannula Intake and Output 11/21/18 11/21/18 11/22/18 1414:59 22:59 06:59 IntakeIntake Total 700 ml 600 ml 510 ml OutputOutput Total 1100 ml 1175 ml 1630 ml BalanceBalance -400 ml -575 ml -1120 ml Exam Constitutional: alert, oriented Neck: other (anterior incision soft, C/D/I, no swelling. Neck in neutral position in hard cervical collar. Drain in place.) Neurological: SENIOR BIOINFORMATICS SPECIALIST II-XII intact, nl mental status, nl speech, nl strength Results Result Diagram: 11/22/18 0439 11/22/18 0438 NADIR DEXTER MD Nov 22, 2018 08:22
[2018-11-22] MEDS: GEMFIBROZIL 600 MG TAB PO SCH (09:00)
[2018-11-22] MEDS: DOCUSATE SODIUM 100 MG CAP PO SCH ×2 (09:00→20:47)
[2018-11-22] MEDS: FLUTICASONE 0.05% 16 GM NAS SPRAY NASAL SCH (10:16)
[2018-11-22] MEDS: VENLAFAXINE 75 MG TABLET PO SCH ×2 (10:17→20:47)
[2018-11-22] MEDS: ATENOLOL 25 MG TAB PO SCH (10:17)
[2018-11-22] MEDS: BUPROPION (XL) 150 MG TAB PO SCH (10:17)
[2018-11-22] MEDS: AMLODIPINE 5 MG TAB PO SCH (10:17)
[2018-11-22] MEDS: TOPIRAMATE 100 MG TAB PO SCH (10:27)
--- NOTE | 2018-11-22 16:11 | PN ---
TONY TROY 11/22/18 1611: Date/Time of Note Date/Time of Note DATE: 11/22/18 TIME: 16:11 Assessment/Plan VTE Prophylaxis Risk score (from Ns)>0 risk: 4 SCD applied (from Ns): Yes Pharmacological prophylaxis: NA/contraindicated Pharm contraindication: surgical contra Lines/Catheters IV Catheter Type (from Nrs): Peripheral IV Assessment/Plan Hospital Course 1. 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 S/p C4 corpectomy, C3-4, C4-5 discectomy, C3-5 arthrodesis, removal of anterior cervical plate, placement of anterior cervical plate C3-5, placement of mechanical intervertebral device C3-[address] Montgomery on 11/20/18. POD # 1. WBC elevated more likely after surgical intervention 2. Chronic cluster headaches, possible to chronic neck pain. Hx of chronic shoulder pain 3. Normocytic normochromic anemia, secondary to blood loss 4. Hx of anterior and posterior cervical fusion in 2008 and 2011, 5.Hypertension 6. Hx of colon tumor removal 7. Hx of herniorrhaphy 3 times. 8. Overweight 9. Hx of hyperlipidemia 10. hx of depression 11. Hx of sinus surgery, 12. Constipation Assessment/Plan -dvt proph. 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 Protonix -BP control -IV a/b -Patient patient started on full liquid -Iron panel was normal -Bowel regimen Result Diagram: 11/22/18 0439 11/22/18 0438 Results 24hrs Laboratory Tests Test 11/22/18 04:38 11/22/18 04:39 Sodium Level 145 H Potassium Level 3.9 Chloride Level 109 Carbon Dioxide Level 26 Anion Gap 10 Blood Urea Nitrogen 14 Creatinine 1.19 Est Glomerular Filtrat Rate mL/min > 60 Glucose Level 144 Calcium Level 9.7 Iron Level 78 Total Iron Binding Capacity 346 Percent Iron Saturation 23 White Blood Count 15.3 H Red Blood Count 3.64 L Hemoglobin 10.8 L Hematocrit 33.0 L Mean Corpuscular Volume 90.7 Mean Corpuscular Hemoglobin 29.7 Mean Corpuscular Hemoglobin Concent 32.7 Red Cell Distribution Width 12.7 Platelet Count 270 Mean Platelet Volume 9.9 Immature Granulocytes % 0.500 H Neutrophils % 81.8 H Lymphocytes % 9.6 L Monocytes % 8.0 Eosinophils % 0.0 Basophils % 0.1 Nucleated Red Blood Cells % 0.0 Immature Granulocytes # 0.070 H Neutrophils # 12.6 H Lymphocytes # 1.5 Monocytes # 1.2 H Eosinophils # 0.0 Basophils # 0.0 Nucleated Red Blood Cells # 0.0 Subjective 24 Hr Interval Summary ENT: pain Exam/Review of Systems Exam Vitals Vital Signs Date Temp Pulse Resp B/P (MAP) Pulse Ox O2 O2 Flow FiO2 Time Delivery Rate 11/22/18 98.9 92 18 151/82 98 Nasal 08:02 (105) Cannula 11/22/18 2.0 01:00 Intake and Output 11/21/18 11/21/18 11/22/18 1515:00 23:00 07:00 IntakeIntake Total 700 ml 600 ml 510 ml OutputOutput Total 1100 ml 1575 ml 1230 ml BalanceBalance -400 ml -975 ml -720 ml Exam ASpen collar Eyes: nl conjunctiva Neck: supple, other (surgical dressingd) Respiratory: clear to auscultation Cardiovascular: regular rate and rhythm Gastrointestinal: soft Results Result Diagram: 11/22/18 0439 11/22/18 0438 Results 24hrs Laboratory Tests Test 11/22/18 04:38 11/22/18 04:39 Sodium Level 145 H Potassium Level 3.9 Chloride Level 109 Carbon Dioxide Level 26 Anion Gap 10 Blood Urea Nitrogen 14 Creatinine 1.19 Est Glomerular Filtrat Rate mL/min > 60 Glucose Level 144 Calcium Level 9.7 Iron Level 78 Total Iron Binding Capacity 346 Percent Iron Saturation 23 White Blood Count 15.3 H Red Blood Count 3.64 L Hemoglobin 10.8 L Hematocrit 33.0 L Mean Corpuscular Volume 90.7 Mean Corpuscular Hemoglobin 29.7 Mean Corpuscular Hemoglobin Concent 32.7 Red Cell Distribution Width 12.7 Platelet Count 270 Mean Platelet Volume 9.9 Immature Granulocytes % 0.500 H Neutrophils % 81.8 H Lymphocytes % 9.6 L Monocytes % 8.0 Eosinophils % 0.0 Basophils % 0.1 Nucleated Red Blood Cells % 0.0 Immature Granulocytes # 0.070 H Neutrophils # 12.6 H Lymphocytes # 1.5 Monocytes # 1.2 H Eosinophils # 0.0 Basophils # 0.0 Nucleated Red Blood Cells # 0.0 Medications Medication Current Medications Acetaminophen/ Hydrocodone Bitart ([place] (/325)) 1 tab Q4H PRN PO .PAIN 1-5; Start 11/20/18 at 20:00 Acetaminophen/ Hydrocodone Bitart ([place] (5/325)) 2 tab Q4H PRN PO .PAIN 6-10; Start 11/20/18 at 20:00 Ondansetron HCl (Zofran Inj) 4 mg Q6H PRN IV NAUSEA/VOMITING Last administered on 11/21/18 16:10; Admin Dose 4 MG; Start 11/20/18 at 20:00 Docusate Sodium (Colace) 100 mg BID PO ; Start 11/21/18 at 09:00 Acetaminophen (Tylenol Tab) 650 mg Q4H PRN PO TEMP GREATER THAN 101F OR REYES; Start 11/20/18 at 20:00 Diazepam (Valium) 5 mg Q4H PRN PO .MUSCLE SPASM; Start 11/20/18 at 20:00 Phenol (Cepastat Lozenge) 1 lozenge PRN PRN MT .SORE THROAT; Start 11/20/18 at 20:00 Diphenhydramine HCl (Benadryl) 50 mg Q6H PRN PO .PRURITUS; Start 11/20/18 at 20:00 Naloxone HCl (Narcan) 0.2 mg Q2M PRN IV RR 8 BREATHS/MIN OR LESS; Start 11/20/18 at 20:00 Morphine Sulfate (morphine) Q4PCA IV Last administered on 11/21/18 23:25; Admin Dose 30 MG; Start 11/20/18 at 21:30 Amlodipine Besylate (Norvasc) 5 mg DAILY PO Last administered on 11/22/18 10:17; Admin Dose 5 MG; Start 11/21/18 at 09:00 Atenolol (Tenormin) 25 mg DAILY PO Last administered on 11/22/18 10:17; Admin Dose 25 MG; Start 11/21/18 at 09:00 Bupropion HCl (Wellbutrin Xl) 300 mg DAILY PO Last administered on 11/22/18 10:17; Admin Dose 300 MG; Start 11/21/18 at 09:00 Fluticasone Propionate (Flonase 0.05% Nasal) 1 spray DAILY NASAL Last administered on 11/22/18 10:16; Admin Dose 1 SPRAY; Start 11/21/18 at 09:00 Gemfibrozil (Lopid) 600 mg DAILY PO ; Start 11/21/18 at 09:00 Topiramate (Topamax) 100 mg QHS PO Last administered on 11/22/18at 10:27; Admin Dose 100 MG; Start 11/21/18 at 21:00 Venlafaxine HCl (Effexor) 75 mg BID PO Last administered on 11/22/18 10:17; Ad min Dose 75 MG; Start 11/21/18 at 09:00 Dexamethasone (Decadron) 4 mg Q8 IV Last administered on 11/22/18 14:30; Admin Dose 4 MG; Start 11/21/18 at 08:00 Dextrose/Sodium Chloride 1,000 ml @ 40 mls/hr Q24H IV Last administered on 11/21/18at 22:46; Admin Dose 40 MLS/HR; Start 11/21/18 at 08:00 Metoclopramide HCl (Reglan) 10 mg Q6H PRN IV NAUSEA Last administered on 11/21/18 09:43; Admin Dose 10 MG; Start 11/21/18 at 09:45 Pantoprazole (Protonix Iv) 40 mg DAILY@06 IV Last administered on 11/22/18 06:33; Admin Dose 40 MG; Start 11/22/18 at 06:00 Levofloxacin/ Dextrose 150 ml @ 100 mls/hr Q24H IVPB Last administered on 11/21/18 22:45; Admin Dose 100 MLS/HR; Start 11/21/18 at 22:00 Zolpidem Tartrate (Ambien) 10 mg HS PRN PO INSOMNIA; Start 11/22/18 at 21:00 DALLAS KISER MD 11/22/18 1743: Assessment/Plan Assessment/Plan Assessment/Plan s/p emergent evacuation yesterday pcp pump fu dr montgomery Result Diagram: 11/22/18 0439 11/22/18 0438 TONY TROY Nov 22, 2018 16:11 DALLAS KISER MD Nov 22, 2018 17:43
[2018-11-22 20:18] VITALS: BP 132/73; PULSE 84; RESP 18
[2018-11-22] MEDS: ACETAMINOPHEN 325 MG TAB PO PRN (20:47)
[2018-11-22] MEDS: morphine 1 MG/ML 30 ML (PCA) IV SCH (20:47)
[2018-11-22] MEDS: DIAZEPAM 5 MG TAB PO PRN (22:26)
[2018-11-22] MEDS: LEVOFLOXACIN 750MG/D5W (PMX) 150 ML IVPB SCH (22:26)
[2018-11-22] MEDS: ZOLPIDEM 5 MG TAB PO PRN (22:37)
[2018-11-23 02:50] VITALS: BP 126/75; PULSE 84; RESP 18
[2018-11-23] MEDS: DIAZEPAM 5 MG TAB PO PRN ×3 (05:39→21:10)
[2018-11-23] MEDS: DEXAMETHASONE 4 MG/ML 1 ML INJ IV SCH (05:39)
[2018-11-23] MEDS: PANTOPRAZOLE 40 MG INJ IV SCH (05:39)
[2018-11-23 07:00] VITALS: BP 140/93; PULSE 92; RESP 18
--- NOTE | 2018-11-23 09:44 | PN ---
Date/Time of Note Date/Time of Note DATE: 11/23/18 TIME: 09:39 Assessment/Plan Lines/Catheters IV C[facility]ter Type (from [facility]): Peripheral IV Assessment/Plan Chief Complaint/Hosp Course POD #3, 1s/p C4 corpectomy and fusion with return to OR for evacuation of prevertebral hematoma. Neurologically stable. 10 ml from rain overnight, simply blood, so drain removed Weening off Decadron. Will cont. Levaquin prophylaxis until D/C. SCD for DVT prophylaxis. F/u swallow evaluation for advancement of diet recommendations. Ambulate. Hopefully, home tomorrow if he continues to do well. Pt. expressed understanding and agreement with this plan of care. Subjective 24 Hr Interval Summary Patient doing well. He feels that his swallowing is improving and minimal odynophagia. He has no neurological complaints. He denies fevers. Exam/Review of Systems Vital Signs Vitals Vital Signs Date Temp Pulse Resp B/P (MAP) Pulse Ox O2 O2 Flow FiO2 Time Delivery Rate 11/23/18 18 05:00 11/23/18 98.2 84 126/75 94 02:50 (92) 11/22/18 Nasal 2.0 20:00 Cannula Intake and Output 11/22/18 11/22/18 11/23/18 1515:00 23:00 07:00 IntakeIntake Total 1080 ml 1240 ml 150 ml OutputOutput Total 1100 ml 1230 ml 1210 ml BalanceBalance -20 ml 10 ml -1060 ml Exam Constitutional: alert, oriented, well developed Neck: other (trachea midline, incision C/D/I, soft. Drain removed. No crepitus) Neurological: GERIATRIC PSYCHIATRIST II-XII intact, nl mental status, nl speech, nl strength Results Result Diagram: 11/23/1851111/23/1812 NADIR DEXTER MD Nov 23, 2018 09:44
[2018-11-23] MEDS: DOCUSATE SODIUM 100 MG CAP PO SCH ×2 (09:46→21:10)
[2018-11-23] MEDS: ATENOLOL 25 MG TAB PO SCH (09:48)
[2018-11-23] MEDS: AMLODIPINE 5 MG TAB PO SCH (09:48)
[2018-11-23] MEDS: VENLAFAXINE 75 MG TABLET PO SCH ×2 (09:49→21:10)
[2018-11-23] MEDS: GEMFIBROZIL 600 MG TAB PO SCH (09:53)
[2018-11-23] MEDS: FLUTICASONE 0.05% 16 GM NAS SPRAY NASAL SCH (10:00)
[2018-11-23] MEDS ORDERED: LUBIPROSTONE 8 MCG CAPSULE PO SCH (10:00)
--- NOTE | 2018-11-23 10:00 | PN ---
Date/Time of Note Date/Time of Note DATE: 11/23/18 TIME: 09:56 Assessment/Plan VTE Prophylaxis Risk score (from Ns)>0 risk: 5 SCD applied (from Ns): Yes Pharmacological prophylaxis: NA/contraindicated Pharm contraindication: surgical contra Lines/Catheters IV [facility]from [facility] Peripheral IV Assessment/Plan Hospital Course 1. 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 S/p C4 corpectomy, C3-4, C4-5 discectomy, C3-5 arthr odesis, removal of anterior cervical plate, placement of anterior cervical plate C3-5, placement of mechanical intervertebral device C3-[address] Montgomery on 11/20/18. POD # 1. WBC elevated more likely after surgical intervention 2. Chronic cluster headaches, possible to chronic neck pain. Hx of chronic shoulder pain 3. Normocytic normochromic anemia, secondary to blood loss 4. Hx of anterior and posterior cervical fusion in 2008 and 2011, 5.Hypertension 6. Hx of colon tumor removal 7. Hx of herniorrhaphy 3 times. 8. Overweight 9. Hx of hyperlipidemia 10. hx of depression 11. Hx of sinus surgery, 12. Constipation Assessment/Plan -dvt proph. 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 Protonix -BP control -IV a/b levofl. - tenzin well full liquid -Iron panel was normal -Bowel regimen Result Diagram: 11/23/18 0512 11/23/18 0512 Results 24hrs Laboratory Tests Test 11/23/18 05:12 White Blood Count 12.8 H Red Blood Count 3.68 L Hemoglobin 11.0 L Hematocrit 33.3 L Mean Corpuscular Volume 90.5 Mean Corpuscular Hemoglobin 29.9 Mean Corpuscular Hemoglobin Concent 33.0 Red Cell Distribution Width 12.7 Platelet Count 267 Mean Platelet Volume 10.2 Immature Granulocytes % 0.200 Neutrophils % 81.2 H Lymphocytes % 12.5 L Monocytes % 5.9 Eosinophils % 0.0 Basophils % 0.2 Nucleated Red Blood Cells % 0.0 Immature Granulocytes # 0.030 Neutrophils # 10.4 H Lymphocytes # 1.6 Monocytes # 0.8 Eosinophils # 0.0 Basophils # 0.0 Nucleated Red Blood Cells # 0.0 Sodium Level 144 Potassium Level 4.2 Chloride Level 109 Carbon Dioxide Level 27 Anion Gap 8 Blood Urea Nitrogen 13 Creatinine 1.01 Est Glomerular Filtrat Rate mL/min > 60 Glucose Level 120 Calcium Level 10.0 Subjective 24 Hr Interval Summary Gastrointestinal: constipation (5 d); No no complaints, No pain, No blood, No decreased appetite, No diarrhea, No flatus, No nausea, No vomiting, No other Exam/Review of Systems Exam Vitals Vital Signs Date Temp Pulse Resp B/P (MAP) Pulse Ox O2 O2 Flow FiO2 Time Delivery Rate 11/23/18 98.3 92 18 140/93 90 Room Air 07:00 (109) 11/22/18 2.0 20:00 Intake and Output 11/22/18 11/22/18 11/23/18 1515:00 23:00 07:00 IntakeIntake Total 1080 ml 1240 ml 150 ml OutputOutput Total 1100 ml 1230 ml 1210 ml BalanceBalance -20 ml 10 ml -1060 ml Exam aspen collar Constitutional: alert, oriented Head: normocephalic Eyes: nl conjunctiva Neck: supple, other (surg dress, WILBERT) Cardiovascular: regular rate and rhythm Gastrointestinal: soft Results Results 24hrs Laboratory Tests Test 11/23/18 05:12 White Blood Count 12.8 H Red Blood Count 3.68 L Hemoglobin 11.0 L Hematocrit 33.3 L Mean Corpuscular Volume 90.5 Mean Corpuscular Hemoglobin 29.9 Mean Corpuscular Hemoglobin Concent 33.0 Red Cell Distribution Width 12.7 Platelet Count 267 Mean Platelet Volume 10.2 Immature Granulocytes % 0.200 Neutrophils % 81.2 H Lymphocytes % 12.5 L Monocytes % 5.9 Eosinophils % 0.0 Basophils % 0.2 Nucleated Red Blood Cells % 0.0 Immature Granulocytes # 0.030 Neutrophils # 10.4 H Lymphocytes # 1.6 Monocytes # 0.8 Eosinophils # 0.0 Basophils # 0.0 Nucleated Red Blood Cells # 0.0 Sodium Level 144 Potassium Level 4.2 Chloride Level 109 Carbon Dioxide Level 27 Anion Gap 8 Blood Urea Nitrogen 13 Creatinine 1.01 Est Glomerular Filtrat Rate mL/min > 60 Glucose Level 120 Calcium Level 10.0 Medications Medication Current Medications Acetaminophen/ Hydrocodone Bitart ([place] (5/325)) 1 tab Q4H PRN PO .PAIN 1-5; Start 11/20/18 at 20:00 Acetaminophen/ Hydrocodone Bitart ([place] (5/325)) 2 tab Q4H PRN PO .PAIN 6-10; Start 11/20/18 at 20:00 Ondansetron HCl (Zofran Inj) 4 mg Q6H PRN IV NAUSEA/VOMITING Last administered on 11/21/18 16:10; Admin Dose 4 MG; Start 11/20/18 at 20:00 Docusate Sodium (Colace) 100 mg BID PO Last administered on 11/23/18 09:46; Admin Dose 100 MG; Start 11/21/18 at 09:00 Acetaminophen (Tylenol Tab) 650 mg Q4H PRN PO TEMP GREATER THAN 101F OR REYES Last administered on 11/22/18 20:47; Admin Dose 650 MG; Start 11/20/18 at 20:00 Diazepam (Valium) 5 mg Q4H PRN PO .MUSCLE SPASM Last administered on 11/23/18 05:39; Admin Dose 5 MG; Start 11/20/18 at 20:00 Phenol (Cepastat Lozenge) 1 lozenge PRN PRN MT .SORE THROAT; Start 11/20/18 at 20:00 Diphenhydramine HCl (Benadryl) 50 mg Q6H PRN PO .PRURITUS; Start 11/20/18 at 20:00 Naloxone HCl (Narcan) 0.2 mg Q2M PRN IV RR 8 BREATHS/MIN OR LESS; Start 11/20/18 at 20:00 Morphine Sulfate (morphine) Q4PCA IV Last administered on 11/22/18 20:47; Admin Dose 30 MG; Start 11/20/18 at 21:30 Amlodipine Besylate (Norvasc) 5 mg DAILY PO Last administered on 11/23/18 09:48; Admin Dose 5 MG; Start 11/21/18 at 09:00 Atenolol (Tenormin) 25 mg DAILY PO Last administered on 11/23/18 09:48; Admin Dose 25 MG; Start 11/21/18 at 09:00 Bupropion HCl (Wellbutrin Xl) 300 mg DAILY PO Last administered on 11/22/18 10:17; Admin Dose 300 MG; Start 11/21/18 at 09:00 Fluticasone Propionate (Flonase 0.05% Nasal) 1 spray DAILY NASAL Last administered on 11/22/18 10:16; Admin Dose 1 SPRAY; Start 11/21/18 at 09:00 Gemfibrozil (Lopid) 600 mg DAILY PO Last administered on 11/23/18 09:53; Admin Dose 600 MG; Start 11/21/18 at 09:00 Topiramate (Topamax) 100 mg QHS PO Last administered on 11/22/18 10:27; Admin Dose 100 MG; Start 11/21/18 at 21:00 Venlafaxine HCl (Effexor) 75 mg BID PO Last administered on 11/23/18 09:49; Admin Dose 75 MG; Start 11/21/18 at 09:00 Metoclopramide HCl (Reglan) 10 mg Q6H PRN IV NAUSEA Last administered on 11/21/18 09:43; Admin Dose 10 MG; Start 11/21/18 at 09:45 Pantoprazole (Protonix Iv) 40 mg DAILY@06 IV Last administered on 11/23/18 05:39; Admin Dose 40 MG; Start 11/22/18 at 06:00 Levofloxacin/ Dextrose 150 ml @ 100 mls/hr Q24H IVPB Last administered on 22:26; Admin Dose 100 MLS/HR; Start 11/21/18 at 22:00 Zolpidem Tartrate (Ambien) 10 mg HS PRN PO INSOMNIA Last administered on 11/22/18 22:37; Admin Dose 10 MG; Start 11/22/18 at 21:00 Dexamethasone (Decadron) 1 mg BID PO ; Start 11/23/18 at 21:00; Stop 11/24/18 at 09:00 TONY TROY Nov 23, 2018 10:00
[2018-11-23] MEDS: HYDROCODONE/APAP (5/325) TAB PO PRN ×4 (10:31→22:42)
[2018-11-23] MEDS: ACETAMINOPHEN 325 MG TAB PO PRN ×2 (12:07→17:12)
[2018-11-23] MEDS: BUPROPION (XL) 150 MG TAB PO SCH (12:07)
[2018-11-23 14:22] VITALS: BP 124/75; PULSE 69; RESP 18
[2018-11-23 20:33] VITALS: BP 131/69; PULSE 72; RESP 19
[2018-11-23] MEDS: TOPIRAMATE 100 MG TAB PO SCH (21:10)
[2018-11-23] MEDS: DEXAMETHASONE 1 MG TAB PO SCH (21:10)
[2018-11-23] MEDS: LEVOFLOXACIN 750MG/D5W (PMX) 150 ML IVPB SCH (21:11)
[2018-11-24] MEDS: DIAZEPAM 5 MG TAB PO PRN (01:12)
[2018-11-24] MEDS: ZOLPIDEM 5 MG TAB PO PRN (01:12)
[2018-11-24] MEDS: HYDROCODONE/APAP (5/325) TAB PO PRN ×2 (02:47→06:47)
[2018-11-24 04:50] VITALS: BP 137/84; PULSE 67; RESP 18
[2018-11-24] MEDS ORDERED: PANTOPRAZOLE (EC) 40 MG TAB PO SCH (06:00)
[2018-11-24 07:58] VITALS: BP 136/80; PULSE 68; RESP 17
--- NOTE | 2018-11-24 08:17 | PN ---
Date/Time of Note Date/Time of Note DATE: 11/24/18 TIME: 08:15 Assessment/Plan Lines/Catheters IV Catheter Type (from Nrsg): Saline Lock [place] in Place (from Nrsg): No Assessment/Plan Chief Complaint/Hosp Course POD #4, 2s/p C4 corpectomy and fusion with return to OR for evacuation of prevertebral hematoma. Neurologically stable. F/u swallow evaluation for advancement of diet recommendations. Ambulate. Home today, f/u in 2 weeks. Subjective 24 Hr Interval Summary Patient doing well. Neck pain well controlled with oral meds. Ambulating, eating with diet advanced, less odynophagia. Denies radicular pain, numbness or weakness. Denies fever or chills. Exam/Review of Systems Vital Signs Vitals Vital Signs Date Temp Pulse Resp B/P (MAP) Pulse Ox O2 O2 Flow FiO2 Time Delivery Rate 11/24/18 98.3 68 17 136/80 93 07:58 (98) 11/23/18 Room Air 14:22 11/22/18 2.0 20:00 Intake and Output 11/23/18 11/23/18 11/24/18 1515:00 23:00 07:00 IntakeIntake Total 1550 ml 200 ml OutputOutput Total 1275 ml 800 ml BalanceBalance -1275 ml 750 ml 200 ml Exam Constitutional: alert, oriented, well developed Psych: no complaints Neck: other (incision C/D/I/. In neutrla position in hard cervical collar. Incision soft. ) Neurological: MANAGER PRESENTATION II-XII intact, nl mental status, nl speech, nl strength Results Result Diagram: 11/24/18 0513 11/24/18 0513 NADIR DEXTER MD Nov 24, 2018 08:17
[2018-11-24] MEDS: GEMFIBROZIL 600 MG TAB PO SCH (08:46)
[2018-11-24] MEDS: DOCUSATE SODIUM 100 MG CAP PO SCH (08:46)
[2018-11-24] MEDS: BUPROPION (XL) 150 MG TAB PO SCH (08:47)
[2018-11-24] MEDS: ATENOLOL 25 MG TAB PO SCH (08:48)
[2018-11-24] MEDS: DEXAMETHASONE 1 MG TAB PO SCH (08:49)
[2018-11-24] MEDS: VENLAFAXINE 75 MG TABLET PO SCH (08:49)
[2018-11-24] MEDS: AMLODIPINE 5 MG TAB PO SCH (08:49)
[2018-11-24] MEDS: FLUTICASONE 0.05% 16 GM NAS SPRAY NASAL SCH (10:01)
--- NOTE | 2018-11-25 00:22 | DS ---
DATE OF ADMISSION: 11/20/2018 DATE OF DISCHARGE: 11/24/2018 HISTORY OF PRESENT ILLNESS AND HOSPITAL COURSE: This is a 43-year-old male with the past medical his tory of chronic neck pain, chronic headache, depression, shoulder pain issues. The patient had injur ed in 2005 and had C5, C6, C7 anterior cervical diskectomy followed by C5-C6 posterior fusion due to pseudoarthrosis. The patient had developed significant worsening neck pain and was followed by pain management as an outpatient. The patient was admitted electively by Dr. Dexter for severe cervical stenosis and cervical spondylosis. The patient had a C4 corpectomy, C3-C4 diskectomy, C3-C5 arthrod esis. Postop, the patient was started on a PEDIATRIC CNS drip due to pain issues. However, postop, the patien t started complaining of swallowing difficulty. Cervical x-ray was ordered that shows patient had ma rked prevertebral 5 cm soft tissue swelling with patent airway. The patient was taken to the OR agai n by Dr. Dexter and had evacuation of the prevertebral hematoma. The patient was feeling better aft er that. The patient was also started on IV Decadron. The patient's condition was getting better ev bob day. After that, neck pain was well controlled with oral meds. The patient was ambulating, eati ng less because of odynophagia. Per Dr. Dexter, the patient is stable to be discharged home. Ch[place] jin, per Dr. Dexter, discharged the patient. FINAL DISCHARGE DIAGNOSES: 1. C4 corpectomy and fusion with the return for evacuation of prevertebral hematoma. 2. Chronic neck pain, myelopathy. 3. Chronic cluster headaches. 4. Normocytic normochromic anemia. 5. History of hypertension. 6. History of colon removal. 7. History of herniography. 8. History of hyperlipidemia. 9. History of depression. DISCHARGE CONDITION: Stable. DISCHARGE PLAN: The patient will follow up with Dr. Dexter in one week. DISCHARGE INSTRUCTIONS: The patient was instructed to follow up with PCP in one to two weeks. Dictated By: DALLAS CAMPOS/AMMON Conf#: [id number] DID#: [id number] CC: NADIR DEXTER MD;*EndCC*
[2018-11-30] MEDS ORDERED: EPHEDrine 25 MG/5 ML SYG ONE (07:00)
[2018-11-30] MEDS ORDERED: SEVOFLURANE 15 MIN ONE (07:00)
== END 2018-11-24 12:30 | disposition home health service (06) | DRG 472 ==
LOC: REC 10:45 → MS1 21:27
PROVIDERS: ADMIT Neurological Surgery; ATTEND Neurological Surgery
PROC: 0RB30ZZ Excision of Cervical Vertebral Disc, Open Approach (ICD-10-PCS; 2018-11-20)
PROC: 0RP104Z Removal of Internal Fixation Device from Cervical Vertebral Joint, Open Approach (ICD-10-PCS; 2018-11-20)
PROC: 4A11X4G Monitoring of Peripheral Nervous Electrical Activity, Intraoperative, External Approach (ICD-10-PCS; 2018-11-20)
PROC: 0RG20A0 Fusion of 2 or more Cervical Vertebral Joints with Interbody Fusion Device, Anterior Approach, Anterior Column, Open Approach (ICD-10-PCS; principal; 2018-11-20 12:00)
PROC: 0JC40ZZ Extirpation of Matter from Right Neck Subcutaneous Tissue and Fascia, Open Approach (ICD-10-PCS; 2018-11-21)
DX: M48.02 Spinal stenosis, cervical region (principal); M50.01 Cervical disc disorder with myelopathy, high cervical region; M47.12 Other spondylosis with myelopathy, cervical region; L76.32 Postprocedural hematoma of skin and subcutaneous tissue following other procedure; M47.22 Other spondylosis with radiculopathy, cervical region; M50.11 Cervical disc disorder with radiculopathy, high cervical region; M53.2X2 Spinal instabilities, cervical region; D64.9 Anemia, unspecified; E78.5 Hyperlipidemia, unspecified; E66.3 Overweight; F41.9 Anxiety disorder, unspecified; F32.9 Major depressive disorder, single episode, unspecified; G44.029 Chronic cluster headache, not intractable; G89.18 Other acute postprocedural pain; I10 Essential (primary) hypertension; K59.00 Constipation, unspecified; R13.10 Dysphagia, unspecified; Y83.8 Other surgical procedures as the cause of abnormal reaction of the patient, or of later complication, without mention of misadventure at the time of the procedure; Z68.27 Body mass index [BMI] 27.0-27.9, adult; Z98.1 Arthrodesis status
CPT/HCPCS: 72040; 80048; 83540; 85025; 86850; 86900; 86901; 88300; 92526; 92610; 97116; 97161; 97530; C9113; J0131; J1100; J1170; J1956; J2175; J2250; J2270; J2370; J2405; J2765; J3010; J3370; J7030; J7042; J7120; L0174